=== PATIENT | male | born 1950 | race Caucasian/White ===

== ENCOUNTER 2017-02-28 08:45 | Emergency (ER) | payer BC ==
[2017-02-28] MEDS ORDERED: Azithromycin 250 MG Tab ONE (09:00)
--- NOTE | 2017-02-28 09:08 | EDM.PDOC ---
ED HPI GENERAL MEDICAL PROBLEM - General Chief Complaint: ENT Problem Stated Complaint: SORE THROAT Time Seen by Provider: 02/28/17 09:00 Source of Information: Reports: Patient - History of Present Illness INITIAL COMMENTS - FREE TEXT/NARRATIVE: started 2 days ago sore throat, swollen glands No cough, no shortness of breath, no chest pain no nausea or vomiting Iburpofen for pain once Onset: Gradual Duration: Day(s): (2) Location: Reports: Other (sore throat) Quality: Reports: Other (scratchy and irritating) Worsens with: Denies: Movement (swallowing) - Related Data Allergies Allergy/AdvReac Type Severity Reaction Status Date / Time Penicillins Allergy Rash Verified 12/22/15 12:06 Home Meds: Home Meds NK [No Known Home Meds] 05/20/13 [History] Past Medical History - Past Health History Medical/Surgical History: Denies Medical/Surgical History Oncologic (Cancer) History: Reports: Lymphoma - Past Surgical History GI Surgical History: Reports: Hernia, Inguinal Social & Family History - Tobacco Use Smoking Status *Q: Never Smoker Second Hand Smoke Exposure: No - Alcohol Use Days Per Week of Alcohol Use: 0 - Recreational Drug Use Recreational Drug Use: No ED ROS GENERAL - Review of Systems Review Of Systems: See Below HEENT: Reports: Throat Pain Respiratory: Reports: No Symptoms Cardiovascular: Reports: No Symptoms GI/Abdominal: Reports: No Symptoms Musculoskeletal: Reports: No Symptoms Neurological: Reports: No Symptoms Psychiatric: Reports: No Symptoms ED EXAM, GENERAL - Physical Exam Exam: See Below Exam Limited By: No Limitations General Appearance: Alert, WD/WN, No Apparent Distress Nose: Normal Inspection, Normal Mucosa Throat/Mouth: Normal Inspection, Other (red oropharynx, no exudate). No: Normal Oropharynx Head: Atraumatic, Normocephalic Neck: Normal Inspection, Supple, Non-Tender, Full Range of Motion, Other (no lymphadenopathy) Respiratory/Chest: No Respiratory Distress, Lungs Clear, Normal Breath Sounds Cardiovascular: Regular Rate, Rhythm. No: Normal Peripheral Pulses GI/Abdominal: Normal Bowel Sounds, Soft, Non-Tender Back Exam: Full Range of Motion Extremities: Normal Range of Motion Neurological: Alert, Oriented, CN II-XII Intact, Normal Cognition, Normal Gait Psychiatric: Normal Affect, Normal Mood Departure - Departure Time of Disposition: 09:45 Disposition: Home, Self-Care 01 Condition: Good Clinical Impression: Tonsillitis - Discharge Information Instructions: Dysphagia, Azithromycin tablets Referrals: PCP,None [Primary Care Provider] - Forms: ED Department Discharge Care Plan Goals: Take 2 tablets of azithromycin today then 1 tab daily until gone. Drink plenty of fluids. Take tylenol or motrin for pain. Return to urgent care if no better by thursday. - Problem List & Annotations (1) Tonsillitis SNOMED Code(s): 03200614 Code(s): J03.90 - ACUTE TONSILLITIS, UNSPECIFIED Status: Acute Priority: Low Current Visit: Yes - Problem List Review Problem List Initiated/Reviewed/Updated: Yes - Assessment/Plan Plan: Home, push fluids, treat symptoms zpak should fever arise If not improving by thursday, get in for re evaluation
[2017-02-28 10:58] VITALS: BP 128/85
== END 2017-02-28 09:14 | disposition home or self-care (01) ==
LOC: LB.ED 08:45
DX: J03.90 Acute tonsillitis, unspecified (principal); Z88.0 Allergy status to penicillin; Z98.890 Other specified postprocedural states; Z85.72 Personal history of non-Hodgkin lymphomas
CPT/HCPCS: 99282; A9270

== ENCOUNTER 2021-04-20 16:00 | Emergency (ER) | payer MEDICARE, OTHER ==
--- NOTE | 2021-04-20 16:28 | EDM.PDOC ---
ED HPI GENERAL MEDICAL PROBLEM - General Chief Complaint: Respiratory Problem Stated Complaint: COVID Time Seen by Provider: 04/20/21 16:10 - History of Present Illness INITIAL COMMENTS - FREE TEXT/NARRATIVE: Pt tested positive for Covid 2 days ago in [place]. He was told to get Regeneron and that is what he is here for. He feels a little tired but does not want to be seen, just treated. - Related Data Allergies Allergy/AdvReac Type Severity Reaction Status Date / Time Penicillins Allergy Rash Verified 02/28/17 10:48 Home Meds: Home Meds NK [No Known Home Meds] 05/20/13 [History] Past Medical History - Past Health History Medical/Surgical History: Denies Medical/Surgical History Immunologic History: Reports: Immunosuppression Other Immunologic History: Recently finished chemo Oncologic (Cancer) History: Reports: Lymphoma - Past Surgical History GI Surgical History: Reports: Hernia, Inguinal Social & Family History - Caffeine Use Caffeine Use: Reports: Coffee ED ROS GENERAL - Review of Systems Review Of Systems: Comprehensive ROS is negative, except as noted in HPI. Constitutional: Reports: Fatigue ED EXAM, GENERAL - Physical Exam Exam: See Below Free Text/Narrative:: Pt was seen in his car. He is in no distress. Physical exam deferred. Course - Re-Assessments/Exams Free Text/Narrative Re-Assessment/Exam: 04/20/21 16:27 Regeneron will be given. He was given the same treatment directions as his , who tested positive for Covid today. Follow up if condition gets worse. He has not been vaccinated for Covid. Departure - Departure Time of Disposition: 16:45 Disposition: Home, Self-Care 01 Clinical Impression: COVID-19 - Discharge Information *PRESCRIPTION DRUG MONITORING PROGRAM REVIEWED*: No *COPY OF PRESCRIPTION DRUG MONITORING REPORT IN PATIENT BLADE: No Referrals: PCP,None [Primary Care Provider] -
== END 2021-04-20 17:05 | disposition home or self-care (01) ==
LOC: LB.ED 16:00
DX: U07.1 COVID-19 (principal); Z88.0 Allergy status to penicillin
CPT/HCPCS: 99283-25; M0243; Q0243

== ENCOUNTER 2023-06-17 16:34 | Emergency (ER) | payer MEDICARE, OTHER ==
[2023-06-17 16:50] VITALS: BP 125/61; PULSE 64
== END 2023-06-17 17:25 | disposition home or self-care (01) ==
LOC: LB.ED 16:34
DX: S29.9XXA Unspecified injury of thorax, initial encounter (principal); Z88.0 Allergy status to penicillin; W19.XXXA Unspecified fall, initial encounter
CPT/HCPCS: 71101-RT; 99283

== ENCOUNTER 2023-07-16 10:26 | Emergency (ER) | payer MEDICARE, OTHER ==
[2023-07-16] MEDS ORDERED: Sodium Chloride 0.9% 10 ML Syringe FLUSH PRN (11:20)
[2023-07-16] MEDS: Sodium Chloride 0.9% 1,000 ML IV SCH (11:31)
[2023-07-16 11:37] LABS: BASOPHILS ABSOLUTE AUTO 0.01 K/uL (0.02-0.10); BASOPHILS PERCENT AUTO 0.4 % (0.0-0.5); EOSINOPHILS ABSOLUTE AUTO 0.05 K/uL (0.04-0.40); HEMATOCRIT 30.5 % (40.0-54.0); HEMOGLOBIN 10.2 g/dL (13.0-18.0); LYMPHOCYTES ABSOLUTE AUTO 0.19 K/uL (1.50-4.00); LYMPHOCYTES PERCENT AUTO 7.6 % (20.0-40.0); MEAN CORPUSCULAR HEMOGLOBIN 29.8 pg (27.0-32.0); MEAN CORPUSCULAR HGB CONC 33.4 g/dL (31.0-35.0); MEAN CORPUSCULAR VOLUME 89 fL (76-96); MONOCYTES ABSOLUTE AUTO 0.37 K/uL (0.20-0.80); MONOCYTES PERCENT AUTO 14.9 % (3.0-10.0); NEUTROPHILS ABSOLUTE AUTO 1.87 K/uL (2.00-7.50); NEUTROPHILS PERCENT AUTO 75.1 % (45.0-70.0); RED BLOOD CELL COUNT 3.42 M/uL (4.50-6.50); RED CELL DISTRIBUTION WIDTH 14.6 % (11.0-16.0); WHITE BLOOD CELL COUNT,WBC 2.5 K/uL (4.0-11.0)
[2023-07-16 11:38] LABS: PLATELET COUNT,PLT 50 K/uL (150-400)
[2023-07-16 11:52] LABS: A/G RATIO 0.5 (0.8-2.0); ALBUMIN 1.9 g/dL (3.4-5.0); ANION GAP 10.1 mmol/L (5.0-15.0); BILIRUBIN TOTAL 0.9 mg/dL (0.0-1.0); BUN/CREATININE RATIO 22.7 (6-25); CALCIUM 7.8 mg/dL (8.5-10.1); CARBON DIOXIDE,CO2 27.9 mmol/L (21.0-32.0); CREATININE 0.88 mg/dL (0.70-1.30); EST CRCL DRUG DOSING (CG) 68.47 mL/min; MAGNESIUM 1.9 mg/dL (1.8-2.4); PHOSPHORUS 4.5 mg/dL (2.5-4.9); PROTEIN TOTAL,TP 5.8 g/dL (6.4-8.2)
[2023-07-16 12:26] LABS: APPEARANCE,URINE CLEAR (CLEAR); BILIRUBIN,URINE NEGATIVE (NEGATIVE); COLOR,URINE YELLOW; GLUCOSE,URINE NEGATIVE (NEGATIVE); KETONES,URINE NEGATIVE (NEGATIVE); LEUKOCYTE ESTERASE,URINE NEGATIVE (NEGATIVE); NITRITE,URINE NEGATIVE (NEGATIVE); OCCULT BLOOD,URINE NEGATIVE (NEGATIVE); PROTEIN,URINE 100 mg/dL (NEGATIVE); UROBILINOGEN,URINE 0.2 E.U./dL (0.2-1.0)
[2023-07-16 12:28] LABS: RBC,URINE NOT SEEN /HPF; WBC,URINE NOT SEEN /HPF
[2023-07-16] MEDS: Iopamidol 612 MG/ML 100 ML Bottle IV SCH (13:17)
[2023-07-16] MEDS: Sodium Chloride 0.9% 50 ML SDV FLUSH ONE (13:17)
[2023-07-17 09:41] LABS: ANION GAP 10.2 mmol/L (5.0-15.0); BUN/CREATININE RATIO 16.5 (6-25); CALCIUM 7.6 mg/dL (8.5-10.1); CARBON DIOXIDE,CO2 29.2 mmol/L (21.0-32.0); CREATININE 0.97 mg/dL (0.70-1.30); EST CRCL DRUG DOSING (CG) 62.12 mL/min; POTASSIUM,K 4.4 mmol/L (3.5-5.1)
[2023-07-17] MEDS: Magnesium Chloride 64 MG Tab.ER PO STA (12:23)
[2023-07-17] MEDS: Calcium Carbonate 500 MG Tab.Chew PO ONE (16:32)
[2023-07-17 20:41] VITALS: BP 105/62; PULSE 80
== END 2023-07-17 21:14 ==
LOC: LB.ED 10:26
DX: R09.02 Hypoxemia (principal); J91.0 Malignant pleural effusion; Z88.0 Allergy status to penicillin; Z79.899 Other long term (current) drug therapy
CPT/HCPCS: 32555; 36415; 71045; 71260; 74177; 80048; 80053; 81001; 83690; 83735; 84100; 85025; 87015; 87070; 87116; 87205; 87206; 88305; 93005; 99285; A0425; A0429; A9270; J3490; J7030; Q9967; 87075; 88108

== ENCOUNTER 2023-08-03 19:37 | Emergency (ER) | payer MEDICARE, OTHER ==
[2023-08-03] MEDS ORDERED: Sodium Chloride 0.9% 10 ML Syringe FLUSH PRN (20:36)
[2023-08-03 20:47] LABS: BASOPHILS ABSOLUTE AUTO 0.01 K/uL (0.02-0.10); BASOPHILS PERCENT AUTO 0.3 % (0.0-0.5); HEMATOCRIT 28.7 % (40.0-54.0); HEMOGLOBIN 9.6 g/dL (13.0-18.0); LYMPHOCYTES ABSOLUTE AUTO 0.04 K/uL (1.50-4.00); LYMPHOCYTES PERCENT AUTO 1.3 % (20.0-40.0); MEAN CORPUSCULAR HEMOGLOBIN 29.7 pg (27.0-32.0); MEAN CORPUSCULAR HGB CONC 33.4 g/dL (31.0-35.0); MEAN CORPUSCULAR VOLUME 89 fL (76-96); MEAN PLATELET VOLUME 9.5 fL (6.0-10.0); MONOCYTES ABSOLUTE AUTO 0.03 K/uL (0.20-0.80); NEUTROPHILS ABSOLUTE AUTO 2.91 K/uL (2.00-7.50); NEUTROPHILS PERCENT AUTO 97.4 % (45.0-70.0); PLATELET COUNT,PLT 87 K/uL (150-400); RED BLOOD CELL COUNT 3.23 M/uL (4.50-6.50); RED CELL DISTRIBUTION WIDTH 16.6 % (11.0-16.0)
[2023-08-03 21:07] LABS: A/G RATIO 0.7 (0.8-2.0); ALANINE AMINOTRANSFERASE,ALT 23 U/L (12-78); ALBUMIN 2.1 g/dL (3.4-5.0); ALKALINE PHOSPHATASE 103 U/L (46-116); ANION GAP 12.1 mmol/L (5.0-15.0); ASPARTATE AMNIOTRANSFERASE,AST 16 U/L (15-37); BILIRUBIN TOTAL 1.4 mg/dL (0.0-1.0); BLOOD UREA NITROGEN,BUN 30 mg/dL (8-26); BUN/CREATININE RATIO 34.1 (6-25); CALCIUM 7.6 mg/dL (8.5-10.1); CARBON DIOXIDE,CO2 27.4 mmol/L (21.0-32.0); CHLORIDE,CL 98 mmol/L (98-107); CREATININE 0.88 mg/dL (0.70-1.30); ESTIMATED GFR 91 mL/min (>60); GLUCOSE RANDOM 135 mg/dL (74-100); MAGNESIUM 1.9 mg/dL (1.8-2.4); POTASSIUM,K 4.5 mmol/L (3.5-5.1); PROTEIN TOTAL,TP 5.3 g/dL (6.4-8.2); SODIUM,NA 133 mmol/L (136-145); TROPONIN I HIGH SENSITIVITY 8.1 pg/ml (<=60.4)
[2023-08-03 21:21] LABS: INFLUENZA A NAA NEGATIVE (NEGATIVE); INFLUENZA B NAA NEGATIVE (NEGATIVE); RESPIRATORY SYNCYTIAL VIR NAA NEGATIVE (NEGATIVE)
[2023-08-03 21:29] LABS: CORONAVIRUS COVID-19 NAA NEGATIVE (NEGATIVE)
[2023-08-03] MEDS: Lidocaine 5% 700 MG Patch TOP ONE (22:30)
[2023-08-03 22:52] VITALS: BP 98/50; PULSE 86
== END 2023-08-03 23:12 ==
LOC: LB.ED 19:37
DX: J90 Pleural effusion, not elsewhere classified (principal); R09.02 Hypoxemia; M79.18 Myalgia, other site; Z88.0 Allergy status to penicillin; Z79.899 Other long term (current) drug therapy
CPT/HCPCS: 0241U; 36415; 71045; 80053; 83735; 84484; 85025; 93005; 93010; 99285; A0425; A0429; A9270-GY

== ENCOUNTER 2023-09-30 13:10 | Emergency (ER) | payer MEDICARE, OTHER ==
[2023-09-30 13:56] VITALS: BP 153/108; PULSE 80
[2023-09-30 14:17] LABS: BASOPHILS ABSOLUTE AUTO 0.02 K/uL (0.02-0.10); BASOPHILS PERCENT AUTO 0.1 % (0.0-0.5); HEMATOCRIT 28.7 % (40.0-54.0); HEMOGLOBIN 8.9 g/dL (13.0-18.0); LYMPHOCYTES ABSOLUTE AUTO 0.11 K/uL (1.50-4.00); LYMPHOCYTES PERCENT AUTO 0.8 % (20.0-40.0); MEAN CORPUSCULAR HEMOGLOBIN 27.3 pg (27.0-32.0); MEAN CORPUSCULAR VOLUME 88 fL (76-96); MEAN PLATELET VOLUME 10.5 fL (6.0-10.0); MONOCYTES ABSOLUTE AUTO 0.21 K/uL (0.20-0.80); MONOCYTES PERCENT AUTO 1.5 % (3.0-10.0); NEUTROPHILS ABSOLUTE AUTO 13.65 K/uL (2.00-7.50); NEUTROPHILS PERCENT AUTO 97.6 % (45.0-70.0); PLATELET COUNT,PLT 119 K/uL (150-400); RED BLOOD CELL COUNT 3.26 M/uL (4.50-6.50); RED CELL DISTRIBUTION WIDTH 18.7 % (11.0-16.0)
[2023-09-30 14:34] LABS: INR 1.4 (1.0-3.5); PH,VENOUS 7.37 (7.31-7.41)
[2023-09-30 14:35] LABS: BASE EXCESS VENOUS -2.2 mm/L (-2-3); BICARBONATE,VENOUS 23.1 mmol/L (23.0-28.0); PCO2 VENOUS 40.2 mm/Hg (41-51)
[2023-09-30 14:37] LABS: PROTHROMBIN TIME 14.4 sec (9.0-11.5)
[2023-09-30] MEDS: Norepinephrine 4 MG in Dextrose 5% in Water 246 ML IV SCH (14:39)
[2023-09-30 14:46] LABS: A/G RATIO 0.8 (0.8-2.0); ALBUMIN 1.7 g/dL (3.4-5.0); ANION GAP 13.5 mmol/L (5.0-15.0); BUN/CREATININE RATIO 29.7 (6-25); CALCIUM 7.6 mg/dL (8.5-10.1); CARBON DIOXIDE,CO2 27.4 mmol/L (21.0-32.0); CREATININE 1.28 mg/dL (0.70-1.30); EST CRCL DRUG DOSING (CG) 41.22 mL/min; POTASSIUM,K 3.9 mmol/L (3.5-5.1); PROTEIN TOTAL,TP 3.8 g/dL (6.4-8.2)
[2023-09-30 14:53] LABS: TROPONIN I HIGH SENSITIVITY 14.5 pg/ml (<=60.4)
[2023-09-30] MEDS: Sodium Chloride 0.9% 1,000 ML IV SCH (14:55)
[2023-09-30] MEDS: Cefepime 2 GM in Sodium Chloride 0.9% 50 ML IV ONE (15:46)
[2023-09-30] MEDS: Lactated Ringers 1,000 ML IV ONE (15:55)
== END 2023-09-30 17:25 ==
LOC: LB.ED 13:10
DX: A41.9 Sepsis, unspecified organism (principal); Z88.0 Allergy status to penicillin; Z79.899 Other long term (current) drug therapy
CPT/HCPCS: 31500; 36415; 71045; 80053; 82803; 82947; 83605; 83880; 84484; 85025; 85379; 85610; 85730; 87040; 93005; 96361; 96365; 96367; 99285-25; J0692; J3490; J7030; J7060; J7120

== ENCOUNTER 2023-11-10 07:52 | Inpatient (IN) | payer MEDICARE, OTHER ==
[2023-11-10] MEDS ORDERED: Non-Formulary Medication 1 Each (Ondansetron Hcl [Ondansetron Hcl] 4 MG Tablet) PO PRN (15:19)
[2023-11-10] MEDS ORDERED: Non-Formulary Medication 1 Each (Oxycodone Hcl [Oxycodone Hcl] 5 MG Capsule) PO PRN (15:19)
[2023-11-10] MEDS ORDERED: Polyethylene Glycol 3350 Powder 17 GM Packet PO PRN (15:19)
[2023-11-10] MEDS ORDERED: Albuterol/Ipratropium 3.0-0.5 MG/3 ML Neb Soln NEB PRN (15:19)
[2023-11-10] MEDS ORDERED: VANCOMYCIN HCL IV SCH (15:30)
[2023-11-10] MEDS ORDERED: cefTRIAXone 2 GM Vial IV SCH (15:30)
[2023-11-10] MEDS ORDERED: BUMETANIDE 0.5 MG PO SCH (15:30)
[2023-11-10] MEDS ORDERED: 50% Dextrose in Water 50 ML Syringe IVPUSH PRN (15:57)
[2023-11-10] MEDS ORDERED: Glucagon,Human Recombinant 1 MG Vial IM PRN (15:57)
[2023-11-10] MEDS ORDERED: Ondansetron 4 MG Tab.DIS PO PRN (16:09)
[2023-11-10] MEDS ORDERED: Non-Formulary Medication 1 Each (Insulin Lispro [Humalog] 100 UNIT/ML Vial) SUBCUT SCH (18:00)
[2023-11-10] MEDS: Insulin Aspart 100 Units/ML 3 ML Pen SUBCUT SCH ×2 (18:29→20:30)
[2023-11-10] MEDS ORDERED: Zinc Oxide 20% Oint 56.7 GM Tube TOP PRN (19:30)
[2023-11-10] MEDS ORDERED: Non-Formulary Medication 1 Each (Fluticasone Propionate [Flonase Allergy Relief] 9.9 ML Sp NASBOTH SCH (20:00)
[2023-11-10] MEDS: Enoxaparin 40 MG/0.4 ML Syringe SUBCUT SCH (20:04)
[2023-11-10] MEDS: Fluticasone NASAL Spray 16 GM Bottle NASBOTH SCH (20:04)
[2023-11-10] MEDS: traZODone 50 MG Tab PO SCH (20:04)
[2023-11-10] MEDS: Tuberculin, PPD 5 Units/0.1 ML 1 ML MDV IDERM ONE (20:05)
[2023-11-10] MEDS: cefTRIAXone 2 GM in Sodium Chloride 0.9% 50 ML IV SCH (22:28)
[2023-11-10] MEDS: Melatonin 3 MG Tab PO PRN (22:57)
[2023-11-10] MEDS: VANCOmycin 1.5 GM/300 ML 300 ML IV SCH (22:58)
[2023-11-10] MEDS: oxyCODONE 5 MG Tab PO PRN (23:41)
[2023-11-10] MEDS: Acetaminophen 325 MG Tab PO PRN (23:41)
[2023-11-11] MEDS: Haloperidol 1 MG Tab PO PRN (01:33)
[2023-11-11] MEDS ORDERED: Cholecalciferol (Vitamin D3) 25 MCG Tab PO SCH (08:00)
[2023-11-11] MEDS ORDERED: MULTIVIT MIN PO SCH (08:00)
[2023-11-11] MEDS ORDERED: [UNRECOGNIZED DRUG - OTHER] PO SCH (08:00)
[2023-11-11] MEDS ORDERED: FERROUS GLUCONATE PO SCH (08:00)
[2023-11-11] MEDS ORDERED: Non-Formulary Medication 1 Each (Cholecalciferol (Vitamin D3) [Vitamin D3] 5,000 UNIT Cap) PO SCH (08:00)
[2023-11-11] MEDS: Cholecalciferol (Vitamin D3) 2,000 Unit Cap PO SCH (08:06)
[2023-11-11] MEDS: Midodrine 5 MG Tab PO SCH (08:06)
[2023-11-11] MEDS: Multivitamin Tab PO SCH (08:06)
[2023-11-11] MEDS: Lactobacillus Acidophilus/Lactobacillus Sporogenes (Probiotic) Tab PO SCH (10:32)
[2023-11-11 12:01] LABS: BASOPHILS ABSOLUTE AUTO 0.02 K/uL (0.02-0.10); BASOPHILS PERCENT AUTO 0.3 % (0.0-0.5); EOSINOPHILS ABSOLUTE AUTO 0.05 K/uL (0.04-0.40); EOSINOPHILS PERCENT AUTO 0.7 % (1.0-5.0); HEMOGLOBIN 7.8 g/dL (13.0-18.0); LYMPHOCYTES ABSOLUTE AUTO 0.45 K/uL (1.50-4.00); LYMPHOCYTES PERCENT AUTO 6.4 % (20.0-40.0); MEAN CORPUSCULAR HEMOGLOBIN 27.6 pg (27.0-32.0); MEAN CORPUSCULAR HGB CONC 31.2 g/dL (31.0-35.0); MEAN CORPUSCULAR VOLUME 88 fL (76-96); MEAN PLATELET VOLUME 8.2 fL (6.0-10.0); MONOCYTES ABSOLUTE AUTO 1.42 K/uL (0.20-0.80); MONOCYTES PERCENT AUTO 20.1 % (3.0-10.0); NEUTROPHILS ABSOLUTE AUTO 5.13 K/uL (2.00-7.50); NEUTROPHILS PERCENT AUTO 72.5 % (45.0-70.0); PLATELET COUNT,PLT 370 K/uL (150-400); RED BLOOD CELL COUNT 2.83 M/uL (4.50-6.50); RED CELL DISTRIBUTION WIDTH 15.8 % (11.0-16.0); WHITE BLOOD CELL COUNT,WBC 7.1 K/uL (4.0-11.0)
[2023-11-11 12:10] LABS: A/G RATIO 0.4 (0.8-2.0); ALBUMIN 1.7 g/dL (3.4-5.0); ANION GAP 9.3 mmol/L (5.0-15.0); BILIRUBIN TOTAL 0.3 mg/dL (0.0-1.0); BUN/CREATININE RATIO 34.1 (6-25); CALCIUM 9.8 mg/dL (8.5-10.1); CARBON DIOXIDE,CO2 34.9 mmol/L (21.0-32.0); CREATININE 0.82 mg/dL (0.70-1.30); EST CRCL DRUG DOSING (CG) 54.87 mL/min; POTASSIUM,K 4.2 mmol/L (3.5-5.1); PROTEIN TOTAL,TP 5.8 g/dL (6.4-8.2)
[2023-11-11] MEDS: oxyCODONE 5 MG Tab PO PRN (12:52)
[2023-11-11] MEDS: Melatonin 10 MG Cap PO SCH (19:17)
[2023-11-11] MEDS: traZODone 100 MG Tab PO SCH (19:17)
[2023-11-12] MEDS: Bumetanide 1 MG Tab PO SCH (08:36)
[2023-11-12] MEDS: Sennosides/Docusate Sodium 50-8.6 MG Tab PO SCH (08:36)
[2023-11-13 08:30] LABS: BASOPHILS ABSOLUTE AUTO 0.02 K/uL (0.02-0.10); BASOPHILS PERCENT AUTO 0.3 % (0.0-0.5); EOSINOPHILS ABSOLUTE AUTO 0.06 K/uL (0.04-0.40); HEMATOCRIT 24.2 % (40.0-54.0); HEMOGLOBIN 7.3 g/dL (13.0-18.0); LYMPHOCYTES ABSOLUTE AUTO 0.34 K/uL (1.50-4.00); LYMPHOCYTES PERCENT AUTO 5.8 % (20.0-40.0); MEAN CORPUSCULAR HGB CONC 30.2 g/dL (31.0-35.0); MEAN CORPUSCULAR VOLUME 90 fL (76-96); MEAN PLATELET VOLUME 8.2 fL (6.0-10.0); MONOCYTES ABSOLUTE AUTO 1.19 K/uL (0.20-0.80); MONOCYTES PERCENT AUTO 20.1 % (3.0-10.0); NEUTROPHILS PERCENT AUTO 72.8 % (45.0-70.0); PLATELET COUNT,PLT 368 K/uL (150-400); RED CELL DISTRIBUTION WIDTH 15.8 % (11.0-16.0); WHITE BLOOD CELL COUNT,WBC 5.9 K/uL (4.0-11.0)
[2023-11-15] MEDS: ALPRAZolam 0.25 MG Tab PO PRN (11:15)
[2023-11-15 13:30] LABS: APPEARANCE,URINE CLOUDY (CLEAR); BILIRUBIN,URINE NEGATIVE (NEGATIVE); COLOR,URINE YELLOW; GLUCOSE,URINE NEGATIVE (NEGATIVE); KETONES,URINE NEGATIVE (NEGATIVE); LEUKOCYTE ESTERASE,URINE MODERATE (NEGATIVE); NITRITE,URINE NEGATIVE (NEGATIVE); OCCULT BLOOD,URINE TRACE-INTACT (NEGATIVE); PROTEIN,URINE 30 mg/dL (NEGATIVE); UROBILINOGEN,URINE 0.2 E.U./dL (0.2-1.0)
[2023-11-15 13:34] LABS: WBC,URINE >100 /HPF
[2023-11-15 13:35] LABS: SQUAMOUS EPITHELIAL CELLS,UR OCCASIONAL /HPF
[2023-11-16] MEDS: Polyethylene Glycol 3350 Powder 17 GM Packet PO SCH (09:20)
[2023-11-16 09:26] LABS: HEMATOCRIT 25.5 % (40.0-54.0); HEMOGLOBIN 7.8 g/dL (13.0-18.0); MEAN CORPUSCULAR HEMOGLOBIN 27.5 pg (27.0-32.0); MEAN CORPUSCULAR HGB CONC 30.6 g/dL (31.0-35.0); MEAN PLATELET VOLUME 8.1 fL (6.0-10.0); RED BLOOD CELL COUNT 2.84 M/uL (4.50-6.50); RED CELL DISTRIBUTION WIDTH 15.6 % (11.0-16.0); WHITE BLOOD CELL COUNT,WBC 5.9 K/uL (4.0-11.0)
[2023-11-16 09:34] LABS: ANION GAP 7.2 mmol/L (5.0-15.0); BUN/CREATININE RATIO 27.8 (6-25); CARBON DIOXIDE,CO2 35.9 mmol/L (21.0-32.0); CREATININE 0.9 mg/dL (0.70-1.30); EST CRCL DRUG DOSING (CG) 51.31 mL/min; POTASSIUM,K 4.1 mmol/L (3.5-5.1)
[2023-11-16] MEDS: Trolamine Salicylate/Aloe Vera 10% Crm 85 GM Tube TOP SCH (11:40)
[2023-11-16] MEDS: Sennosides/Docusate Sodium 50-8.6 MG Tab PO SCH (20:57)
[2023-11-17] MEDS: Ferrous Sulfate 325 MG Tab PO SCH (08:12)
[2023-11-18] MEDS: Enoxaparin 40 MG/0.4 ML Syringe ONE (22:10)
[2023-11-18] MEDS: traZODone 100 MG Tab ONE (22:11)
[2023-11-19 16:21] LABS: BASOPHILS ABSOLUTE AUTO 0.04 K/uL (0.02-0.10); BASOPHILS PERCENT AUTO 0.8 % (0.0-0.5); EOSINOPHILS ABSOLUTE AUTO 0.04 K/uL (0.04-0.40); EOSINOPHILS PERCENT AUTO 0.8 % (1.0-5.0); HEMATOCRIT 25.5 % (40.0-54.0); HEMOGLOBIN 7.7 g/dL (13.0-18.0); LYMPHOCYTES PERCENT AUTO 7.6 % (20.0-40.0); MEAN CORPUSCULAR HEMOGLOBIN 27.1 pg (27.0-32.0); MEAN CORPUSCULAR HGB CONC 30.2 g/dL (31.0-35.0); MEAN CORPUSCULAR VOLUME 90 fL (76-96); MEAN PLATELET VOLUME 8.3 fL (6.0-10.0); MONOCYTES ABSOLUTE AUTO 0.72 K/uL (0.20-0.80); MONOCYTES PERCENT AUTO 13.7 % (3.0-10.0); NEUTROPHILS ABSOLUTE AUTO 4.04 K/uL (2.00-7.50); NEUTROPHILS PERCENT AUTO 77.1 % (45.0-70.0); PLATELET COUNT,PLT 387 K/uL (150-400); RED BLOOD CELL COUNT 2.84 M/uL (4.50-6.50); RED CELL DISTRIBUTION WIDTH 15.6 % (11.0-16.0); WHITE BLOOD CELL COUNT,WBC 5.2 K/uL (4.0-11.0)
[2023-11-19 16:41] LABS: A/G RATIO 0.5 (0.8-2.0); ANION GAP 7.3 mmol/L (5.0-15.0); BILIRUBIN TOTAL 0.3 mg/dL (0.0-1.0); C-REACTIVE PROTEIN 75.9 mg/L (<5.0); CALCIUM 10.3 mg/dL (8.5-10.1); CARBON DIOXIDE,CO2 35.9 mmol/L (21.0-32.0); EST CRCL DRUG DOSING (CG) 46.22 mL/min; POTASSIUM,K 4.2 mmol/L (3.5-5.1); PROTEIN TOTAL,TP 5.9 g/dL (6.4-8.2)
[2023-11-19] MEDS: Iopamidol 612 MG/ML 100 ML Bottle IV PRN (17:55)
[2023-11-19] MEDS: Sodium Chloride 0.9% 50 ML SDV FLUSH SCH (17:55)
[2023-11-19] MEDS: Magnesium Citrate Solution 296 ML Bottle PO ONE (19:26)
[2023-11-24] MEDS: traZODone 50 MG Tab PO SCH (19:52)
[2023-11-25] MEDS: VANCOmycin 750 MG/150 ML 150 ML IV SCH (21:00)
[2023-12-01] MEDS: Lidocaine 1% 10 ML MDV INJECT ONE (18:45)
[2023-12-01] MEDS: methylPREDNISolone Sodium Succinate 40 MG/1 ML SDV IM ONE (20:00)
[2023-12-05] MEDS: Midodrine 5 MG Tab ONE (08:55)
[2023-12-09] MEDS: Alteplase 2 MG Vial IVPUSH ONE (11:28)
[2023-12-11] MEDS: Calcium Carbonate 500 MG Tab.Chew ONE (18:12)
[2023-12-11] MEDS: Calcium Carbonate 500 MG Tab.Chew PO PRN (18:15)
[2023-12-14 09:26] LABS: HEMATOCRIT 26.4 % (40.0-54.0); MEAN CORPUSCULAR HEMOGLOBIN 27.9 pg (27.0-32.0); MEAN CORPUSCULAR HGB CONC 30.3 g/dL (31.0-35.0); MEAN PLATELET VOLUME 8.5 fL (6.0-10.0); RED BLOOD CELL COUNT 2.87 M/uL (4.50-6.50); RED CELL DISTRIBUTION WIDTH 17.1 % (11.0-16.0)
[2023-12-14 09:34] LABS: ANION GAP 12.5 mmol/L (5.0-15.0); BUN/CREATININE RATIO 23.4 (6-25); CALCIUM 9.5 mg/dL (8.5-10.1); CARBON DIOXIDE,CO2 31.6 mmol/L (21.0-32.0); CREATININE 1.11 mg/dL (0.70-1.30); EST CRCL DRUG DOSING (CG) 44.18 mL/min; POTASSIUM,K 4.1 mmol/L (3.5-5.1)
[2023-12-14] MEDS ORDERED: Aspirin 81 MG Tab.EC PO ONE (15:00)
[2023-12-14] MEDS: Aspirin 81 MG Tab.Chew PO SCH (15:07)
[2023-12-14] MEDS: Aspirin 81 MG Tab.Chew PO ONE (15:09)
[2023-12-16] MEDS: Trolamine Salicylate/Aloe Vera 10% Crm 85 GM Tube TOP SCH (14:00)
[2023-12-17 12:32] VITALS: BP 118/72; PULSE 62
== END 2023-12-17 12:15 | disposition home or self-care (01) | DRG 948 ==
LOC: UNDOADMIN 13:50 → LB.MS 13:50
PROVIDERS: ADMIT Physician Assistant; ATTEND Physician Assistant
DX: R53.1 Weakness (principal); M00.9 Pyogenic arthritis, unspecified; D84.9 Immunodeficiency, unspecified; E46 Unspecified protein-calorie malnutrition; Z68.1 Body mass index [BMI] 19.9 or less, adult; H54.7 Unspecified visual loss; R10.31 Right lower quadrant pain; F03.90 Unspecified dementia, unspecified severity, without behavioral disturbance, psychotic disturbance, mood disturbance, and anxiety; E11.9 Type 2 diabetes mellitus without complications; K59.00 Constipation, unspecified; F41.9 Anxiety disorder, unspecified; D64.9 Anemia, unspecified; D70.9 Neutropenia, unspecified; Z88.0 Allergy status to penicillin; Z79.51 Long term (current) use of inhaled steroids; Z79.01 Long term (current) use of anticoagulants; Z79.4 Long term (current) use of insulin; Z79.899 Other long term (current) drug therapy; Z87.19 Personal history of other diseases of the digestive system; Z87.81 Personal history of (healed) traumatic fracture; Z85.72 Personal history of non-Hodgkin lymphomas; Z98.890 Other specified postprocedural states
CPT/HCPCS: 36415; 51701; 73560-LT; 74177; 80048; 80053; 80202; 81001; 82947; 85025; 85027; 86140; 86580; 87086; 92507-GN; 92523-GN; 92526-GN; 92610-GN; 97110-GO; 97110-GP; 97116-GP; 97162-GP; 97165-GO; 97530-GO; 97530-GP; 97542-GO; 99305; 99309; 99316; A9270-GY; C1758; J0696; J1650; J2919; J2920; J2997; J3370; J3372; J3490; J7050; Q9967